=== PATIENT | female | born 1995 | race Hispanic/Latino ===

== ENCOUNTER 2018-03-12 04:21 | Emergency (ER) | payer MEDICAID, OTHER ==
[2018-03-12] MEDS ORDERED: FAMOTIDINE 20MG TAB 20 MG TAB ONE (04:43)
[2018-03-12] MEDS ORDERED: LIDOCAINE HCL 2% VISCOUS 15 ML UDCUP ONE (04:43)
[2018-03-12] MEDS ORDERED: MAG HYDROX/AL HYDROX/SIMETH ES 30 ML SUSP UDCUP ONE (04:43)
[2018-03-12 04:50] LABS: APPEARANCE,URINE Cloudy (CLEAR); BILIRUBIN,URINE Negative (NEGATIVE); COLOR,URINE Yellow (YELLOW); GLUCOSE, URINE (UA) Negative (NEGATIVE); KETONES,URINE Negative (NEGATIVE); LEUKOCYTE ESTERASE ,URINE Trace (NEGATIVE); NITRATE,URINE Negative (NEGATIVE); OCCULT BLOOD,URINE Negative (NEGATIVE); PROTEIN,URINE Negative (NEGATIVE); UROBILINOGEN,URINE 0.2 mg/dL (0.2-1.0)
[2018-03-12 05:05] LABS: BACTERIA,URINE Moderate /HPF (None Seen); HCG,QUAL RESULT NEGATIVE (NEGATIVE); MUCUS,URINE Moderate LPF (None Seen); RBC,URINE None Seen /HPF (0-1); SQUAMOUS EPITHELIAL CELL,UR Moderate /HPF (0-2)
[2018-03-12] MEDS ORDERED: METOCLOPRAMIDE 10 MG/2 ML VIAL ONE (05:09)
[2018-03-12] MEDS ORDERED: SODIUM CHLORIDE 0.9% 1000ML 1,000 ML IV ONE (05:10)
[2018-03-12] MEDS ORDERED: ONDANSETRON HCL 4 MG/2 ML VIAL ONE (05:10)
[2018-03-12] MEDS ORDERED: DiphenhydrAMINE HCL 50 MG/ML VIAL ONE (05:10)
[2018-03-12 05:52] LABS: BASOPHILS % (AUTO) 0.4 % (0.0-5.0); EOSINOPHILS % (AUTO) 2.4 % (0.0-8.0); HEMATOCRIT 38.1 % (36-48); LYMPHOCYTES % (AUTO) 28.3 % (21.0-51.0); MEAN CORPUSCULAR HEMOGLOBIN 29.3 pg (27.0-33.0); MEAN CORPUSCULAR HGB CONC 33.4 g/dL (32.0-36.0); MEAN CORPUSCULAR VOLUME 87.6 fL (79-99); MONOCYTES % (AUTO) 6.7 % (3.0-13.0); NEUTROPHILS % (AUTO) 62.2 % (40.0-77.0); PLATELET COUNT (AUTO) 306 K/uL (130-400); RED BLOOD CELL COUNT(AUTO) 4.35 MIL/uL (4.00-5.50); RED CELL DISTRIBUTION WIDTH 13.5 % (11.0-15.5); WHITE BLOOD COUNT (AUTO) 9.6 K/uL (4.8-10.8)
[2018-03-12 06:04] LABS: CREATININE 0.8 mg/dL (0.5-1.5); POTASSIUM 3.2 mmol/L (3.5-5.1)
[2018-03-12 06:08] LABS: ALBUMIN 3.7 g/dL (3.5-5.0); BILIRUBIN,TOTAL 0.4 mg/dL (0.2-1.0); TOTAL PROTEIN, SERUM 7.4 g/dL (6.0-8.3)
== END 2018-03-12 06:48 | disposition home or self-care (01) ==
LOC: EDH 04:21
DX: R10.13 Epigastric pain (principal)
CPT/HCPCS: 36415; 80053; 81001; 81025; 83690; 85025; 96374; 96375; 99283; J1200; J2405; J2765; J7030

== ENCOUNTER 2019-02-27 23:42 | Observation (INO) | payer MEDICAID ==
[~2019-02-27] VITALS: Ht 172.7 cm; Wt 124.7 kg
[2019-02-28] MEDS ORDERED: LACTATED RINGERS 1000ML 1,000 ML IV SCH
[2019-02-28 00:32] LABS: APPEARANCE,URINE Clear (CLEAR); BILIRUBIN,URINE Negative (NEGATIVE); COLOR,URINE Yellow (YELLOW); GLUCOSE, URINE (UA) Negative (NEGATIVE); KETONES,URINE Negative (NEGATIVE); LEUKOCYTE ESTERASE ,URINE Moderate (NEGATIVE); NITRATE,URINE Negative (NEGATIVE); OCCULT BLOOD,URINE Negative (NEGATIVE); PROTEIN,URINE Negative (NEGATIVE)
[2019-02-28 00:44] LABS: BACTERIA,URINE Few /HPF (None Seen); RBC,URINE 0-1 /HPF (0-1)
[2019-02-28 01:18] VITALS: BP 123/76
[2019-02-28] MEDS ORDERED: CALC500T7 PO (01:20)
[2019-02-28] MEDS ORDERED: PREN-196 PO (01:20)
== END 2019-02-28 01:40 | disposition home or self-care (01) ==
LOC: EDH 23:42 → LDH 23:43
PROVIDERS: ADMIT Obstetrics & Gynecology; ATTEND Obstetrics & Gynecology
DX: O26.893 Other specified pregnancy related conditions, third trimester (principal); O99.513 Diseases of the respiratory system complicating pregnancy, third trimester; R10.30 Lower abdominal pain, unspecified; Z3A.37 37 weeks gestation of pregnancy; J45.909 Unspecified asthma, uncomplicated
CPT/HCPCS: 59025; 81001; 99284; G0378 ×2

== ENCOUNTER 2021-12-16 17:01 | Emergency (ER) | payer MEDICAID ==
[~2021-12-16] VITALS: Ht 175.3 cm; Wt 104.3 kg
[~2021-12-16 17:01] MED LIST: CALC500T7 PO; PREN-196 PO; PREN1TAB80 PO
[2021-12-16 17:12] VITALS: BP 132/77
[2021-12-16 17:40] LABS: BASOPHILS % (AUTO) 0.6 % (0.0-5.0); EOSINOPHILS % (AUTO) 13.4 % (0.0-8.0); HEMATOCRIT 37.9 % (36-48); LYMPHOCYTES % (AUTO) 23.5 % (21.0-51.0); MEAN CORPUSCULAR HEMOGLOBIN 28.1 pg (27.0-33.0); MEAN CORPUSCULAR HGB CONC 32.7 g/dL (32.0-36.0); MEAN CORPUSCULAR VOLUME 85.7 fL (79-99); MONOCYTES % (AUTO) 5.3 % (3.0-13.0); PLATELET COUNT (AUTO) 328 K/uL (130-400); RED BLOOD CELL COUNT(AUTO) 4.42 MIL/uL (4.00-5.50); RED CELL DISTRIBUTION WIDTH 13.9 % (11.0-15.5); WHITE BLOOD COUNT (AUTO) 11.4 K/uL (4.8-10.8)
[2021-12-16 17:49] LABS: CREATININE 0.9 mg/dL (0.5-1.5)
[2021-12-16 17:53] LABS: ALBUMIN 3.8 g/dL (3.5-5.0); TOTAL PROTEIN, SERUM 7.7 g/dL (6.0-8.3)
[2021-12-16 18:55] LABS: APPEARANCE,URINE CLEAR (CLEAR); BILIRUBIN,URINE NEGATIVE (NEGATIVE); COLOR,URINE LIGHT-YELLOW (YELLOW); GLUCOSE, URINE (UA) NEGATIVE (NEGATIVE); KETONES,URINE NEGATIVE (NEGATIVE); LEUKOCYTE ESTERASE ,URINE NEGATIVE Leu/uL (NEGATIVE); NITRATE,URINE NEGATIVE (NEGATIVE); OCCULT BLOOD,URINE NEGATIVE (NEGATIVE); PROTEIN,URINE NEGATIVE (NEGATIVE); UROBILINOGEN,URINE 0.2 mg/dL (0.2-1.0)
[2021-12-16 18:59] LABS: HCG,QUALITATIVE URINE NEGATIVE (NEGATIVE)
[2021-12-16 19:01] LABS: MUCUS,URINE RARE LPF (None Seen); SQUAMOUS EPITHELIAL CELL,UR FEW /HPF (0-2)
== END 2021-12-16 19:06 | disposition home or self-care (01) ==
LOC: EDH 17:01
DX: K80.50 Calculus of bile duct without cholangitis or cholecystitis without obstruction (principal); Z79.899 Other long term (current) drug therapy
CPT/HCPCS: 36415; 76705; 80053; 81001; 81025; 83690; 85025

== ENCOUNTER 2022-03-08 20:14 | Emergency (ER) | payer MEDICAID ==
[~2022-03-08] VITALS: Ht 172.7 cm; Wt 118.4 kg
[2022-03-08 21:32] LABS: BASOPHILS % (AUTO) 0.4 % (0.0-5.0); HEMATOCRIT 38.5 % (36-48); LYMPHOCYTES % (AUTO) 26.8 % (21.0-51.0); MEAN CORPUSCULAR HEMOGLOBIN 28.3 pg (27.0-33.0); MEAN CORPUSCULAR VOLUME 85.7 fL (79-99); MONOCYTES % (AUTO) 5.5 % (3.0-13.0); NEUTROPHILS % (AUTO) 65.1 % (40.0-77.0); PLATELET COUNT (AUTO) 270 K/uL (130-400); RED BLOOD CELL COUNT(AUTO) 4.49 MIL/uL (4.00-5.50); RED CELL DISTRIBUTION WIDTH 13.4 % (11.0-15.5); WHITE BLOOD COUNT (AUTO) 10.3 K/uL (4.8-10.8)
[2022-03-08 21:34] LABS: APPEARANCE,URINE CLEAR (CLEAR); BILIRUBIN,URINE NEGATIVE (NEGATIVE); COLOR,URINE LIGHT-YELLOW (YELLOW); GLUCOSE, URINE (UA) NEGATIVE (NEGATIVE); KETONES,URINE NEGATIVE (NEGATIVE); LEUKOCYTE ESTERASE ,URINE 25 Leu/uL (NEGATIVE); NITRATE,URINE NEGATIVE (NEGATIVE); OCCULT BLOOD,URINE LARGE (NEGATIVE); PROTEIN,URINE NEGATIVE (NEGATIVE); UROBILINOGEN,URINE 0.2 mg/dL (0.2-1.0)
[2022-03-08 21:37] LABS: HCG,QUALITATIVE URINE POSITIVE (NEGATIVE)
[2022-03-08 21:40] LABS: BACTERIA,URINE RARE /HPF (None Seen); MUCUS,URINE RARE LPF (None Seen); RBC,URINE TNTC /HPF (0-1); SQUAMOUS EPITHELIAL CELL,UR FEW /HPF (0-2)
[2022-03-08 21:48] LABS: POTASSIUM 3.7 mmol/L (3.5-5.1)
[2022-03-08 21:57] LABS: CREATININE 0.8 mg/dL (0.5-1.5)
[2022-03-08 22:38] VITALS: BP 116/74
== END 2022-03-08 23:08 | disposition home or self-care (01) ==
LOC: EDH 20:14
DX: O20.0 Threatened abortion (principal); Z3A.08 8 weeks gestation of pregnancy
CPT/HCPCS: 36415; 76801; 80053; 81001; 81025; 84702; 85025; 86900; 86901; 87088

== ENCOUNTER 2024-12-29 14:48 | Emergency (ER) | payer SELFPAY ==
[~2024-12-29] VITALS: Ht 175.3 cm; Wt 124.7 kg
[~2024-12-29 14:48] MED LIST changes: +DOCU-116 PO
[2024-12-29] MEDS ORDERED: OXYmetazoline HCL SPRAY 100 SPRAYS/15 ML BOTTLE EN STA (16:24)
[2024-12-29 16:27] LABS: SARS-CoV-2, RNA, NAAT NEGATIVE SARS CoV-2 (NEGATIVE)
[2024-12-29 16:31] LABS: INFLUENZA TYPE A Negative For Type A (NEGATIVE); INFLUENZA TYPE B Negative For Type B (NEGATIVE)
[2024-12-29] MEDS ORDERED: AMOX875T2 PO (16:42)
--- NOTE | 2024-12-29 16:43 | ERN ---
ED Note History of Present Illness Stated Complaint: RT EARACHE Chief Complaint: Earache Time Seen by MD: 14:51 Time Seen by Midlevel: 14:58 Dictation: 29 Female coming in with complaints of right ear pain/stuffiness. Patient states she has has a flu-like symptoms for two weeks. Denies any fever, nausea vomiting or diarrhea. And we will just current shows with comfort. Allergies: Coded Allergies: No Known Drug Allergies (Unverified Allergy, Unknown, 10/27/22) Home Meds Reported Medications Docusate Sodium (Colace) 100 Mg Capsule, 100 MG PO BID PRN for CONSTIPATION, #60 CAP 10/29/22 Vits W-Ca,Fe,FA(<1Mg) ( Vitamins) 1 Each Tablet, 1 EACH PO DAILY, TAB 10/02/20 Calcium Carbonate (Tums) 200 Mg Tab.chew, 200 MG PO DAILYDINNER, TAB.CHEW 02/28/19 Vit No.124/Iron/FA ( Vitamin Tablet) 1 Each Tablet, 1 EACH PO DAILYLUNCH, TAB 02/28/19 Past Medical History Past Medical History: No Pertinent History Surgical History: None LMP: Dec 15, 2024 : 4 Para: 3 Aborts: 1 Review of System Dictation Constitutional: Negative for fever,chills, and weight loss Eyes: Negative for injury, pain,redness, and discharge ENT: Right ear pain Cardiovascular: Negative for chest pain, palpitations, and edema Respiratory: Negative for shortness of breath, cough, and wheezing, Abdomen/GI: Negative for abdominal pain, nausea, vomiting, diarrhea, and constipation Back: Negative for injury and pain : Negative for injury, bleeding and discharge MS/Extremity: Negative for injury and deformity Skin: Negative for rash, and discoloration Neuro: Negative for headache, weakness, numbness, tingling, and seizure Psych: Negative for suicide ideation, homicidal ideation, and hallucinations Review of Systems: was completed Initial Vital Sign VS Vital Signs Date Time Temp Pulse Resp B/P (MAP) Pulse Ox O2 Delivery O2 Flow Rate FiO2 12/29/24 14:49 99.0 94 18 170/95 99 Room Air 0 Physical Exam Dictation General: awake, alert, NAD Head/Face: Normocephalic, atraumatic Eyes: PERRL, EOMI, vision at baseline ENT: oral cavity clear, lab work TMs clear, no signs of infection left ear canal however right TM is slightly erythemic. Findings isn't with the otitis media Neck: Trachea midline, supple, no nuchal rigidity Cardiovascular: RRR, normal S1/S2, No MRGs, no JVD Respiratory: CTAB, no respiratory distress, No rales or wheezes Abdomen: Soft, non-tender, non-distended, normal bowel sounds, no guarding or rebound. Skin: Warm, dry, normal turgor, no rash MS/Extremity: Pulses equal, no cyanosis, neurovascular intact, FROM Neuro: COAx4, GCS 15, strength 5/5, CN 2-12 intact, normal cerebellar exam, normal gait, Psych: Normal behavior, mood, and affect normal Results (Laboratory/Radiology) Laboratory/Radiology Laboratory Tests Test 12/29/24 15:09 Influenza Type A Antigen Negative For Type A Influenza Type B Antigen Negative For Type B SARS-CoV-2, RNA, NAAT NEGATIVE SARS CoV-2 Labs Reviewed?: Yes ED Course ED Course Orders Procedure Category Date Status Time Covid Rna Naat LAB 12/29/24 Complete 15:07 Influenza Type A & B, LAB 12/29/24 Complete Rapid 15:07 Oxymetazoline Hcl PHA 12/29/24 Complete [place] (Afrin) 16:24 Current Medications Medications (Trade) Dose Ordered Sig/Alycia Route PRN Reason Start Time Stop Time Status Last Admin Dose Admin Oxymetazoline HCl (AFrin) 1 sprays ONCE STAT EN 12/29/24 16:24 12/29/24 16:26 DC Vital Signs Date Time Temp Pulse Resp B/P (MAP) Pulse Ox O2 Delivery O2 Flow Rate FiO2 12/29/24 14:49 99.0 94 18 170/95 99 Room Air 0 Medical Decision Making MDM MDM: 29 Female coming in with complaints of right ear pain/stuffiness. Patient states she has has a flu-like symptoms for two weeks. Denies any fever, nausea vomiting or diarrhea. And we will just current shows with comfort. Swabs for COVID and flu negative. Patient will be discharged on antibiotics for right otitis media. Discussed with the patient she can take the EKGs has a bloating count of two help with the congestion. Educated on signs and symptoms of when to return back to the emergency room. Patient verbalized understanding, answered all questions. Differential diagnosis: We will be, viral syndrome, otitis media, otitis externa Rationale: Tests considered and ordered secondary to shared decision making include: Previous outside records reviewed: Old ER visits. Risk of complication and/or morbidity or mortality of patient management: None Medications-Per medication reconciliation Need for hospitalization: Patient does not meet criteria for hospitalization. Need for emergency major/minor surgery: No There are no social concerns with this patient. Prescription drug management Prescriptions will include symptomatic care Patient's prior external medical records from other ER visits were reviewed by me as indicated. Prior testing and results from previous visits were reviewed. Prior tests were taken into account with medical decision making and resource utilization, independent historian/historians were used to obtain complete medical history. I independently interpreted the test that were performed, results were reviewed by me and considered findings on radiology if ordered. Medical management and examination interpretation discussions were had by me with other qualified healthcare professionals as indicated for the patient's care. DX & DISP Disposition: Discharge Departure Impression: Primary Impression: Right otitis media Condition: Stable Scripts Amoxicillin (Amoxicillin) 875 Mg Tablet 1 TAB PO BID for 5 Days, #10 TAB 0 Refills Prov: NUNU COUGHLIN CNP 12/29/24 Additional Instructions: Follow up with educated for flu and COVID. Does take the antibiotic for your right otitis media. Follow up with your primary doctor in 1-2 days. Return to the hospital as needed. Referrals: EDEL DUNN MD (PCP) Time of Disposition: 16:42 I have reviewed the case, and I agree with, Diagnosis and Plan NUNU COUGHLIN CNP Dec 29, 2024 16:43
[2024-12-29 16:52] VITALS: BP 118/70; PULSE 80; RESP 17; TEMP 97.6; O2SAT 100
== END 2024-12-29 17:42 | disposition home or self-care (01) ==
LOC: EDH 14:48
DX: H66.91 Otitis media, unspecified, right ear (principal); Z20.822 Contact with and (suspected) exposure to COVID-19
CPT/HCPCS: 87635; 87804; 99283